=== PATIENT | male | born 2000 | race Caucasian/White ===

== ENCOUNTER → 2025-04-07 | Day surgery (SDC) | payer OTHER ==
[~2025-04-07] VITALS: Ht 180.3 cm; Wt 78.5 kg
[~2025-04-07] MED LIST: ACETAMINOPHEN 1000MG/100ML 100 ML IV ONE; BUPIVACAINE HCL/PF 0.5% (5MG/ML) 10ML ONE; FENTANYL CITRATE/PF 50MCG/ML 2ML VIAL ONE; HYDROMORPHONE HCL/PF 1MG/ML INJ IV PRN; MIDAZOLAM HCL 2 MG/2 ML VIAL ONE; ONDANSETRON HCL 4MG/2ML INJ IV PRN; PHENYLEPHRINE HCL 10MG/ML 1ML IV ONE; PROPOFOL 200MG/20ML VIAL IV ONE; SKIN ADHESIVE 0.7 GM EA TOP ONE
[2025-04-07] MEDS: LACTATED RINGERS 1,000 ML IV SCH (06:17)
== END | disposition home or self-care (01) ==
LOC: OR 05:33
PROVIDERS: ATTEND Surgery
DX: R22.2 Localized swelling, mass and lump, trunk (principal); L72.0 Epidermal cyst; Z79.899 Other long term (current) drug therapy; Z98.890 Other specified postprocedural states
CPT/HCPCS: 11402; 88304; J3010; J0665; J2250; J2371; J2704; J0131